=== PATIENT | female | born 1945 | race Caucasian/White ===

== ENCOUNTER → 2016-06-19 | Outpatient (CLI) | payer OTHER ==
[~2016-06-19] VITALS: Ht 160 cm; Wt 129.1 kg
[~2016-06-19] MED LIST: ALEVE220 MG PO; ASPIR 8181 MG PO; IRBESARTAN-HCT1 EAC1 PO; MYRBETRIQ50 MG PO; RESTASIS1 EACH OPHTHALMIC; STOOL SOFTENER100 MG PO; TYLENOL325 MG PO; VITAMIN D1000 UNI1 PO; ZOCOR 10 MG TAB10 MG PO
--- NOTE | ~2016-06-19 | HPC ---
[facility] [address] [place] [address] PAIN MANAGEMENT CONSULTATION Name: MYRNA MAXWELL Room #: REG CLAnne Ron#: [id number] Admission: 06/19/16 Attend Phys: Facundo Whiting MD Discharge: Date of : 47 Report #: [id number] THIS REPORT FOR: //name// CC: Lam Whiting DATE OF REGISTRATION: 06/19/2016. Followup visit for low back pain and radiculopathy. The patient returns to the pain clinic today for an epidural injection. Her last injection was about three and a half months ago. She continues to report excellent response to these injections that last about 3-4 months. She is not a surgical candidate. Pain again is reported to be in her back, it does radiate down into her legs a bit. She has a marked old degenerative disk at L2-L3 and we have been injecting her in that area. Pain is worse with walking, standing, getting up and down out of the bed. She reports that after her last injection, she had up to 80% pain relief for 1 month and then the pain gradually recurred over the next several months. She is here today hoping that she can have continued improvement and is much better than she was at the very beginning of therapy over a year ago. MEDICATIONS: Cyclosporine eye drops, naproxen on as needed basis, aspirin 81 mg daily, Tylenol taken as needed as well, simvastatin, Myrbetriq and irbesartan/hydrochlorothiazide. ALLERGIES: None. PHYSICAL EXAMINATION: She is 5 feet 3 inches, 284 pounds for a BMI of 50.4. Blood pressure is 134/69, heart rate is 82, respirations 16. She is able to move from sitting to standing position and ambulate without much of an antalgic gait. She does not use a walking device. She has limited range of motion across the lumbar spine and tenderness across the low back and positive straight leg raising. IMPRESSION: Chronic low back pain with radiculopathy. RECOMMENDATION: Repeat epidural injection L2-L3 under fluoroscopic guidance. PROCEDURE: She was taken to the fluoroscopic suite, placed prone, skin prepped with ChloraPrep, skin anesthetized over L2-L3 and a 20-gauge 6 inch Tuohy epidural needle was advanced in the epidural space with loss of resistance. No blood or CSF was aspirated, 1 mL of Omnipaque injected. Good spread of dye observed in the epidural space followed by 3 mL of 0.5% lidocaine mixed with 80 mg of triamcinolone. She tolerated the procedure well and was observed for 45 minutes and discharged. [address] [address] PAIN MANAGEMENT CONSULTATION Name: MYRNA MAXWELL Room #: REG TEOFILO Velasquez#: [id number] Admission: 06/19/16 Attend Phys: Facundo Whiting MD Discharge: Date of : 47 Report #: [id number] Follow up as needed. By: [id number] Facundo Whiting MD /kris
[2016-06-19 13:52] VITALS: BP 134/69
== END | disposition home or self-care (01) ==
LOC: PAIN 06:51
DX: M54.16 Radiculopathy, lumbar region (principal); M54.5 Low back pain; G89.29 Other chronic pain; Z87.891 Personal history of nicotine dependence

== ENCOUNTER → 2016-10-21 | Outpatient (CLI) | payer OTHER ==
[~2016-10-21] VITALS: Ht 157.5 cm; Wt 127.0 kg
[~2016-10-21] MED LIST changes: +CARTIA XT240 M1 PO; +ELIQUIS5 MG PO; +LASIX 40 MG TAB40 M2 PO; +LOPRESSOR50 PO; +METOPROLOL SUC100 MG PO; +POTASSIUM20 PO
--- NOTE | ~2016-10-21 | EKG ---
[address] [address] ELECTROCARDIOGRAM REPORT Name: MYRNA MAXWELL [id number] Admission: 10/21/16 Attend Phys: Davie Finn MD Discharge: Date of : 47 Report #: [id number] THIS REPORT FOR: //name// [facility] Test Date: 2016-10-21 Test Time: 09:28:33 Pat Name: MYRNA MAXWELL Department: Room: Gender: F [employer] Intelligence Technician: Charlie ANDREW : 1945 Requested By: Davie Finn Order Number: [id number] MD: Luis Garcia Measurements Intervals [place] Rate: 70 P: 24 TN: 192 QRS: 32 QRSD: 94 T: 38 QT: 400 QTc: 432 Interpretive Statements Sinus rhythm No significant abnormality No previous ECG available for comparison Electronically Signed On 10-22-2016 8:05:52 CDT by Luis Garcia [email or web address] <ELECTRONICALLY SIGNED> By: Luis Garcia MD, [facility] 10/22/16 0805 0928 0928 Luis Garcia MD, FACC /EPI
[2016-10-21 07:48] VITALS: BP 110/66
[2016-10-21 08:04] LABS: HEMATOCRIT 42.6 % (37.0-47.0); HEMOGLOBIN 14.1 gm/dL (12.0-15.0); MCH 31.2 pg (26.0-34.0); MCHC 33.1 g/dL (28.0-37.0); MCV 94.1 fL (80.0-100.0); RBC 4.53 mil/uL (4.20-5.00); RDW 13.6 % (10.5-14.5); WBC 5.6 thou/uL (4.0-11.0)
[2016-10-21 08:14] LABS: CALCIUM 8.7 mg/dL (8.5-10.1); CREATININE 0.7 mg/dL (0.6-1.0); POTASSIUM 3.6 mmol/L (3.5-5.1)
[2016-10-21 08:18] LABS: ALBUMIN 3.3 g/dL (3.4-5.0); INR 1.1; PROTIME 11.1 Seconds (9.3-11.4); TOTAL BILIRUBIN 0.7 mg/dL (<0.1-1.0); TOTAL PROTEIN 6.9 g/dL (6.4-8.2)
== END | disposition home or self-care (01) ==
LOC: CATH 07:13
PROVIDERS: Internal Medicine Cardiovascular Disease
DX: I48.91 Unspecified atrial fibrillation (principal); I10 Essential (primary) hypertension; E78.5 Hyperlipidemia, unspecified; E66.01 Morbid (severe) obesity due to excess calories; Z82.49 Family history of ischemic heart disease and other diseases of the circulatory system; Z98.890 Other specified postprocedural states; Z96.653 Presence of artificial knee joint, bilateral; Z79.01 Long term (current) use of anticoagulants; Z79.899 Other long term (current) drug therapy
CPT/HCPCS: 62110; 62900

== ENCOUNTER → 2016-11-20 | Outpatient (CLI) | payer OTHER ==
[~2016-11-20] VITALS: Ht 157.5 cm; Wt 127.0 kg
[~2016-11-20] MED LIST changes: +APAP650 PO
--- NOTE | ~2016-11-20 | HPC ---
[facility] [place] [address] PAIN MANAGEMENT CONSULTATION Name: MYRNA MAXWELL Room #: REG TEOFILO Ron#: [id number] Admission: 11/20/16 Attend Phys: Facundo Whiting MD Discharge: Date of : 47 Report #: [id number] THIS REPORT FOR: //name// CC: THOMAS Whiting DATE OF SERVICE: 11/20/2016 Followup visit for lumbar radiculopathy with weakness, bilateral lower extremities. The patient returns to pain clinic today for injections. She was last seen on 06/19/2016 when she received a lumbar epidural injection with good response. She has significant spurring noted at L2-L3 where we have been injecting her and she has had months of relief with injections allowing her to be more active and avoid the use of pain medication. In the last few months since I saw her, she has developed atrial fibrillation. She has had cardioversion now and in sinus rhythm, but remains on Eliquis. It was discontinued 72 hours and advanced at today's visit, so that she could have an epidural injection. Pain score today is 3-4, mostly in her low back, but she has weakness in her legs consistent with radiculopathy. She finds that after her injection not only is her back pain dramatically better, but she has better endurance, her legs feel stronger. MEDICATIONS: Reviewed and reconciled. For pain, she has been taking only Tylenol. ALLERGIES: NONE. PHYSICAL EXAMINATION: She is a mohamud 71-year-old. Blood pressure is 113/47, heart rate 88, respirations 16. BMI is 51.2. She is able to stand independently. She walks with antalgic features. Her gait is little bit unstable. Cardiac rhythm is regular today. IMPRESSION: 1. Low back pain with radiculopathy, manifested as weakness, bilateral lower extremities secondary to degenerative disk disease. She has responded beautifully to epidural injections. 2. Recent onset atrial fibrillation. 3. Morbid obesity. PROCEDURE: Epidural steroid injection under fluoroscopic guidance. [address] [address] PAIN MANAGEMENT CONSULTATION Name: HANSMYRNA A Room #: REG TEOFILO Velasquez#: [id number] Admission: 11/20/16 Attend Phys: Facundo Whiting MD Discharge: Date of : 47 Report #: [id number] PROCEDURE NOTE: She was taken to the fluoroscopic suite for treatment. She was placed prone, skin was prepped with ChloraPrep. Skin was anesthetized over L2-L3 and a 20-gauge Tuohy epidural needle advanced in the first attempt into the epidural space with loss of resistance. There was no blood or CSF aspirated. 1 mL of Omnipaque injected, was then followed by 3 mL of 0.5% lidocaine mixed with 80 mg of triamcinolone. She tolerated the procedure well and was observed for 45 minutes and discharged. Followup visit planned on an as needed basis. She was instructed to restart her Eliquis tonight. By: [id number] Facundo Whiting MD /nt
[2016-11-20 12:43] VITALS: BP 113/47
== END | disposition home or self-care (01) ==
LOC: PAIN 09-25 06:45
DX: M51.36 Other intervertebral disc degeneration, lumbar region (principal); M54.16 Radiculopathy, lumbar region; I48.91 Unspecified atrial fibrillation; E66.01 Morbid (severe) obesity due to excess calories; G89.29 Other chronic pain; Z68.43 Body mass index [BMI] 50.0-59.9, adult; Z79.899 Other long term (current) drug therapy; Z98.890 Other specified postprocedural states

== ENCOUNTER → 2017-01-27 | Outpatient (CLI) | payer OTHER ==
[~2017-01-27] VITALS: Ht 157.5 cm; Wt 128.4 kg
--- NOTE | ~2017-01-27 | HPC ---
[facility] [address] [place] [address] PAIN MANAGEMENT CONSULTATION Name: MYRNA MAXWELL Room #: REG CL Tien.#: [id number] Admission: 01/27/17 Attend Phys: Facundo Whiting MD Discharge: Date of : 47 Report #: [id number] THIS REPORT FOR: //name// CC: Obed Head MD [facility] Lam Whiting DATE OF SERVICE: 01/27/2017 DATE OF REGISTRATION: 01/27/2017 Followup visit for chronic lumbar radiculopathy. The patient has done really well in the past with epidural injections, but the one I gave her on 11/20/2016 was not as helpful. I reviewed her films from that injection. It appears that the medication was well within the epidural space and spreading posteriorly. I did, however injected 1 level higher than I had injected her previously. She has a markedly degenerative disk with spurring and endplate changes noted at L1-L2. I have previously been injecting her at L3-L4. At her last injection, I injected her at L1-L2 and the response was left favorable, so I have agreed to repeat the injection today lower by one level. Potential benefits and risks have been reviewed in the past and once again discussed before we proceeded. She is complaining her pain was 7 or 8 today. It is in her low back, radiates bilaterally into her hips and down below the knee. She has some instability and her balance is off from weakness in her legs. She has only been taking Extra Strength Tylenol because she does not want to take anything stronger. On physical exam, she has got blood pressure of 115/60, heart rate 87, respirations 20, BMI is 51.7. We have talked about her weight in the past and she understands that it contributes to her back issues. Cardiac rhythm is regular. Her gait is limited. IMPRESSION: Low back pain with radiculopathy. PLAN: Epidural steroid injection under fluoroscopic guidance. After informed consent, she was taken to the fluoroscopic suite, placed prone, skin prepped with ChloraPrep. Skin anesthetized the right of midline at L2-L3. A 20-gauge Tuohy epidural needle was advanced toward the epidural space. I removed the stylet believing that I was just outside the ligamentum flavum and it was apparent that I had advanced the needle into the intrathecal space. I was able to easily aspirate CSF. The needle was therefore withdrawn slightly. The needle was then readvanced slightly lower in the epidural space where I was [address] [address] PAIN MANAGEMENT CONSULTATION Name: MYRNA MAXWELL Room #: REG [facility].#: [id number] Admission: 01/27/17 Attend Phys: Facundo Whiting MD Discharge: Date of : 47 Report #: [id number] able to engage the epidural ligamentum flavum. I advanced the needle into the epidural space with loss of resistance. There was no CSF nor was her blood aspirated at this level. I injected radiographic dye. It spread nicely within the epidural space. Some of the dye may have spread a bit anterior. I injected 1-2 mL of 0.5% lidocaine plain. There was no noticeable weakness at that time. No numbness or tingling. I then injected 4 mL of 0.5% lidocaine mixed with 80 mg of triamcinolone. She tolerated the procedure well and was taken to recovery room where she was observed for roughly 2 hours. She did develop fairly significant heaviness in her legs. We discussed this as possible movement of some of the 1% lidocaine into the intrathecal space or it could have been from the initial loss of resistance. She was able to ambulate with a steady gait 2 hours following the injection. I discussed with her the dural puncture and the possibility of posterior puncture headache. With the 20-gauge needle with bevel, I turned properly, 71 years of age, likelihood of headache I told her was roughly 1 in 8 or so I would believe it is about 15%. A phone call was placed to the patient 24 hours later. She was still experiencing excellent relief of pain and there was only a mild discomfort, nothing serious in the way of headache. I will check with her again in 72 hours following the procedure and she understands that if she develops postural headache, she is to call my cell phone. By: [id number] Facundo Whiting MD /nt
[2017-01-27 09:44] VITALS: BP 115/60
== END | disposition home or self-care (01) ==
LOC: PAIN 06:53
DX: M54.16 Radiculopathy, lumbar region (principal); G89.29 Other chronic pain; Z79.899 Other long term (current) drug therapy

== ENCOUNTER → 2017-04-27 | Outpatient (CLI) | payer OTHER ==
[~2017-04-27] VITALS: Ht 157.5 cm; Wt 129.3 kg
[~2017-04-27] MED LIST changes: +IRBESARTAN300 MG PO; +OXYBUTYNIN 5 MG5 M2 PO; +PACERONE 200 M200 M1 PO; -VITAMIN D1000 UNI1 PO; +VITAMIN D3400 UNIT PO
--- NOTE | ~2017-04-27 | HPC ---
[facility] [place] [address] PAIN MANAGEMENT CONSULTATION Name: MYRNA MAXWELL Room #: REG TEOFILO Ron#: [id number] Admission: 04/27/17 Attend Phys: Facundo Whiting MD Discharge: Date of : 46 Report #: [id number] THIS REPORT FOR: //name// CC: Lam Whiting DATE OF SERVICE: 04/27/2017 Followup visit for lumbar radiculopathy. The patient returns to Pain Clinic today for an epidural injection. She is morbidly obese. She has pain in her back that radiates into both her legs. It is worse with standing and weightbearing. She has plans to go to [place], [place] and would like an injection before she leaves. She is hopeful she will spend more time walking and being active; however, her pain intensity now is such that it limits simple day-to-day activities including getting up and down for bed. MEDICATIONS: All medications were reviewed and reconciled. PQRS assessment reveals osteoarthritis involving both left and right lower extremity, hip and knees. She is morbidly obese with height of 5 feet 2 inches, weight 285 for a BMI of 52.1. Vital signs are blood pressure 100/59, heart rate 73, respirations 20, O2 sat 97. Her pain intensity is a 5-6/10 and she is not currently a fall risk from her back, but lightheaded and dizzy are may be a fall risk on the basis of that. She has been given recommendations regarding orthostatic changes. She is on the blood thinner Eliquis typically for the DVT, but it has been discontinued in anticipation of an injection today. She has been treated with antihypertensive medications and currently showing some signs of orthostatic hypotension. She should follow up with primary care. She is not on an opioid and therefore, has not signed an opioid agreement or completed a risk tool. She does not smoke, but does drink alcohol on a social basis. IMPRESSION: 1. Lumbar radiculopathy, chronic. 2. Obesity. 3. History of atrial fibrillation, on anticoagulation therapy, discontinued in anticipation of injection Eliquis for 3 days. 4. Osteoarthritis involving lower extremity, worse in the left ankle. PROCEDURE: Lumbar epidural injection. PROCEDURE: She is taken to fluoroscopic suite, placed prone, skin prepped with ChloraPrep. Skin anesthetized over the L3-L4 interspace. A 20-gauge Tuohy epidural needle advanced in the epidural [place] [address] PAIN MANAGEMENT CONSULTATION Name: MYRNA MAXWELL Room #: REG CLI Ron#: [id number] Admission: 04/27/17 Attend Phys: Facundo Whiting MD Discharge: Date of : 47 Report #: [id number] technique. No blood or CSF aspirated. 1 mL of Omnipaque injected. Good spread of dye observed in the epidural space followed by 3 mL of 0.5% lidocaine with 80 mg of triamcinolone. She tolerated the procedure well and was observed for 45 minutes and discharged. Follow up as needed. <ELECTRONICALLY SIGNED> By: Facundo Whiting MD 06/03/17 1640 1531 0036 Facundo Whiting MD /nt
[2017-04-27 13:17] VITALS: BP 100/59
== END | disposition home or self-care (01) ==
LOC: PAIN 07:10
DX: M54.16 Radiculopathy, lumbar region (principal); G89.29 Other chronic pain; I48.91 Unspecified atrial fibrillation; M19.90 Unspecified osteoarthritis, unspecified site; E66.01 Morbid (severe) obesity due to excess calories; Z68.43 Body mass index [BMI] 50.0-59.9, adult; Z79.01 Long term (current) use of anticoagulants; Z79.899 Other long term (current) drug therapy

== ENCOUNTER → 2017-10-01 | Outpatient (CLI) | payer OTHER ==
[~2017-10-01] VITALS: Ht 157.5 cm; Wt 125.0 kg
--- NOTE | ~2017-10-01 | HPC ---
[facility] [place] [address] [address] PAIN MANAGEMENT CONSULTATION Name: MYRNA MAXWELL Room #: REG [facility] Tien.#: [id number] Admission: 10/01/17 Attend Phys: Facundo Whiting MD Discharge: Date of : 47 Report #: [id number] THIS REPORT FOR: //name// CC: Vincent Velez [facility] Lam Whiting DATE OF SERVICE: 10/01/2017 The patient returns to the pain clinic today and is scheduled to have her left knee replaced by Dr. Velez in about 2-1/2 weeks. She is concerned about her ability to perform physical therapy given her ongoing radiculopathy. She stopped her Eliquis and is here today for an epidural injection. She reports her last injection performed in April provided substantial pain relief. She was able to move more effectively. She was very grateful for the relief it provided. She is hopeful that this injection timed at this time will allow for similar mobility as she works to strengthen her legs. Right now, the left leg is very weak and she has difficulty with prolonged standing or walking, going up and down steps. She is constantly fearful of falling. She is morbidly obese and that contributes to some of the risks and concerns. All medications were reviewed and reconciled. She is off her Eliquis as I mentioned for 5 days. PQRS review is completed. She is morbidly obese. She denies use of tobacco. She is not hypertensive, but does have issues with intermittent atrial fibrillation. She follows with the artificial limb fitter. She is a fall risk due to the weakness in her left leg. I do not provide opioids for her at this time. IMPRESSION: 1. Lumbar radiculopathy, chronic and recurrent. 2. Obesity. 3. Osteoarthritis, left knee. 4. History of atrial fibrillation, off Eliquis now for 5 days. PROCEDURE: Lumbar epidural steroid injection under fluoroscopic guidance. PROCEDURE: She was taken to the fluoroscopic suite, placed prone, prepped with ChloraPrep. Skin was anesthetized over L3-L4 to the right of midline. A 20-gauge Tuohy epidural needle advanced in the epidural space in the first attempt with loss of resistance technique. No blood or CSF was aspirated. 1 mL of Omnipaque injected. Good spread of dye observed in the epidural space followed by 3 mL of 0.5% lidocaine mixed with 80 mg of triamcinolone. She [address] [address] PAIN MANAGEMENT CONSULTATION Name: MYRNA MAXWELL Room #: [id number] Admission: 10/01/17 Attend Phys: Facundo Whiting MD Discharge: Date of : 47 Report #: [id number] tolerated the procedure well, was observed for 45 minutes and discharged. Follow up as needed. <ELECTRONICALLY SIGNED> By: Facundo Whiting MD 10/05/17 1230 1245 0139 MD juliano Childers
[2017-10-01 11:04] VITALS: BP 104/53
== END | disposition home or self-care (01) ==
LOC: PAIN 07:24
DX: M54.16 Radiculopathy, lumbar region (principal); E66.01 Morbid (severe) obesity due to excess calories; I48.91 Unspecified atrial fibrillation; Z79.899 Other long term (current) drug therapy; M17.12 Unilateral primary osteoarthritis, left knee

== ENCOUNTER → 2018-02-08 | Outpatient (CLI) | payer OTHER ==
[~2018-02-08] VITALS: Ht 160 cm; Wt 130.2 kg
--- NOTE | ~2018-02-08 | HPC ---
[facility] [address] [address] PAIN MANAGEMENT CONSULTATION Name: MYRNA MAXWELL Room #: REG TEOFILO [facility].#: [id number] Admission: 02/08/18 Attend Phys: Facundo Whiting MD Discharge: Date of : 47 Report #: [id number] THIS REPORT FOR: //name// CC: Vincent Head MD [facility] Lam Whiting DATE OF SERVICE: 02/08/2018 Followup visit for lumbar radiculopathy. The patient returns today for lumbar epidural steroid injection. She has responded favorably to midline epidural injections performed just below the level of a large spur that we identified on AP and lateral views. The spur is most prominent at L3-L4. We injected just below that interspace. She reports that after each epidural, she has substantial improvement measured in months. Less pain radiating into her legs, she is able to stand and walk with greater ease. She has recently undergone a revision of her left knee replacement. Dr. Vincent Velez did it at [facility] and she is very pleased with his work, his conscientious and also with his excellent recommendations regarding rehabilitation, which she felt was critical. She is on Eliquis for atrial fibrillation. Dr. Head provides medication for her and I spoke with him this morning agreeing that 3 days is enough to be off of her Eliquis safely for her heart and also by recommendation for a neuraxial epidural injection. PQRS: Review completed today demonstrates a history of osteoarthritis with bilateral knee replacements, morbid obesity 50.9 BMI. She has struggled mildly with weight and weight loss is a challenge. She is on hypertensive medications as noted. All medications were reviewed. She has a history of atrial fibrillation. All cardiac medications are overseen by Dr. Gomes and Dr. Head. She is on Eliquis, discontinuing roughly 4 days ago. She is not a fall risk at this time. She does not take opioid medications. She denies use of current tobacco and alcohol is consumed in a social setting. IMPRESSION: 1. Chronic low back pain with radiculopathy, bilateral. 2. Morbid obesity. 3. Osteoarthritis, status post bilateral knee replacements with revision of left knee replacement. [address] [address] PAIN MANAGEMENT CONSULTATION Name: MYRNA MAXWELL Room #: REG [facility].#: [id number] Admission: 02/08/18 Attend Phys: Facundo Whiting MD Discharge: Date of : 47 Report #: [id number] 4. History of atrial fibrillation. PROCEDURE: Lumbar epidural steroid injection L3-L4 under fluoroscopic guidance. PROCEDURE: She was taken to fluoroscopic suite, placed prone, skin prepped with ChloraPrep. Skin anesthetized over the L3-L4 interspace. A 20-gauge Tuohy epidural needle advanced into the epidural space just to the right of midline. No blood or CSF aspirated. 1 mL of Omnipaque was injected. Good spread of dye observed in the epidural space followed by 3 mL of 0.5% lidocaine with 80 mg of triamcinolone. She tolerated the procedure well and was observed for 45 minutes and discharged. Follow up as needed. By: [id number] Facundo Whiting MD /nt
[2018-02-08 09:12] VITALS: BP 104/49
== END | disposition home or self-care (01) ==
LOC: PAIN 06:53
DX: M54.16 Radiculopathy, lumbar region (principal); G89.29 Other chronic pain; M17.0 Bilateral primary osteoarthritis of knee; I48.91 Unspecified atrial fibrillation; E66.01 Morbid (severe) obesity due to excess calories; Z79.01 Long term (current) use of anticoagulants; Z68.43 Body mass index [BMI] 50.0-59.9, adult; Z96.653 Presence of artificial knee joint, bilateral; Z98.890 Other specified postprocedural states; Z79.899 Other long term (current) drug therapy

== ENCOUNTER → 2018-03-25 | Outpatient (CLI) | payer OTHER ==
[2018-03-18 09:06] VITALS: BP 110/60
[~2018-03-25] VITALS: Ht 160 cm; Wt 131.9 kg
--- NOTE | ~2018-03-25 | HPC ---
[facility] [address] [place] [address] PAIN MANAGEMENT CONSULTATION Name: MYRNA MAXWELL Room #: REG TEOFILO Ron#: [id number] Admission: 03/25/18 Attend Phys: Facundo Whiting MD Discharge: Date of : 47 Report #: [id number] THIS REPORT FOR: //name// CC: Lam Whiting DATE OF SERVICE: 03/25/2018 Followup visit for chronic low back pain with radiculopathy. The patient is here today for a second epidural injection in the last 3 months. In the past, she has received at times up to 6 months of pain relief following an epidural injection. Her last injection was not as helpful. We reviewed her injection site spot films and hope to repeat the longstanding relief she received in April. She describes her pain as mostly low back, weightbearing across the lumbosacral segment with some radiation and down the back of her legs. When she is sitting or lying, she is comfortable. We had an open and altagracia discussion today about her weight. She understands that it contributes greatly to her back pain and she has goals to lose weight in 2019. She has a number of strategies in mind. PQRS review reveals osteoarthritis of knees and spondylosis of the low back. BMI 51.5. She is on Eliquis, but discontinued it 4 days ago in anticipation of injection. Dr. Head provides medication for blood pressure. All medications were reviewed and reconciled noted on the electronic medical record. She is not currently on opioids. She has not fallen in the last 3 months and has not fallen over the course of the last year. She is cautious when going up and down steps due to her weight. IMPRESSION: 1. Chronic low back pain with radiculopathy, bilateral, multilevel. 2. Lumbar spondylosis. 3. Osteoarthritis, status post bilateral knee replacements. 4. Morbid obesity. 5. Hypertension. 6. History of atrial fibrillation. She is off her Eliquis for injection today. PROCEDURE: Lumbar epidural steroid injection, L3-L4. DESCRIPTION OF PROCEDURE: She was taken to fluoroscopic suite, placed prone, skin prepped with ChloraPrep. Skin anesthetized over the L3-L4 interspace and a 20-gauge Tuohy epidural needle advanced in the epidural space with loss of resistance. There was initially blood aspirated and the needle was [address] [address] PAIN MANAGEMENT CONSULTATION Name: HANSMYRNA A Room #: REG [facility].#: [id number] Admission: 03/25/18 Attend Phys: Facundo Whiting MD Discharge: Date of : 47 Report #: [id number] repositioned. A second positioning revealed no aspiration of blood, 1 mL of lidocaine injected with no untoward effects. This was then followed by 1 mL of Omnipaque and an excellent epidurogram was achieved. It was followed by 3 mL of 0.5% lidocaine mixed with 80 mg of triamcinolone. She tolerated the procedure well and observed for 45 minutes. Pain score reduced to 2/10. Followup visit scheduled on an as needed basis. No medications were ordered at this time. By: [id number] Facundo Whiting MD /nt
[2018-03-25 10:23] VITALS: BP 106/52
== END | disposition home or self-care (01) ==
LOC: PAIN 03-18 08:39
DX: M47.26 Other spondylosis with radiculopathy, lumbar region (principal); G89.29 Other chronic pain; M17.0 Bilateral primary osteoarthritis of knee; I10 Essential (primary) hypertension; E66.01 Morbid (severe) obesity due to excess calories; I48.91 Unspecified atrial fibrillation; Z79.01 Long term (current) use of anticoagulants; Z79.899 Other long term (current) drug therapy; Z96.653 Presence of artificial knee joint, bilateral; Z98.890 Other specified postprocedural states; Z68.43 Body mass index [BMI] 50.0-59.9, adult

== ENCOUNTER → 2018-06-30 | Outpatient (CLI) | payer OTHER ==
[2018-06-30 14:23] LABS: ALBUMIN 3.6 g/dL (3.4-5.0); CREATININE 0.8 mg/dL (0.6-1.0); POTASSIUM 3.6 mmol/L (3.5-5.1); TOTAL BILIRUBIN 0.5 mg/dL (<0.1-1.0); TOTAL PROTEIN 6.7 g/dL (6.4-8.2)
== END ==
LOC: MRI 13:31
PROVIDERS: Family Medicine
DX: H53.2 Diplopia (principal); H49.10 Fourth [trochlear] nerve palsy, unspecified eye; R90.82 White matter disease, unspecified

== ENCOUNTER → 2018-07-14 | Outpatient (CLI) | payer OTHER ==
[~2018-07-14] MED LIST changes: +DEMADEX20 MG PO; +DOXYCYCLINE HY100 M3 PO
== END ==
LOC: HYPER 07-12 15:22
DX: I87.303 Chronic venous hypertension (idiopathic) without complications of bilateral lower extremity (principal); L97.821 Non-pressure chronic ulcer of other part of left lower leg limited to breakdown of skin; L97.811 Non-pressure chronic ulcer of other part of right lower leg limited to breakdown of skin; I48.0 Paroxysmal atrial fibrillation; E66.9 Obesity, unspecified; E78.5 Hyperlipidemia, unspecified; M19.90 Unspecified osteoarthritis, unspecified site; G47.33 Obstructive sleep apnea (adult) (pediatric); J45.909 Unspecified asthma, uncomplicated; Z87.891 Personal history of nicotine dependence; Z79.01 Long term (current) use of anticoagulants; Z68.42 Body mass index [BMI] 45.0-49.9, adult

== ENCOUNTER → 2018-07-19 | Outpatient (CLI) | payer OTHER ==
[~2018-07-19] VITALS: Ht 160 cm; Wt 120.9 kg
--- NOTE | ~2018-07-19 | HPC ---
[facility] [place] [address] PAIN MANAGEMENT CONSULTATION Name: MYRNA MAXWELL Room #: REG TEOFILO Ron#: [id number] Admission: 07/19/18 ������������������ Attend Phys: Facundo Whiting MD Discharge: ������������������ Date of : 47 Report #: [id number] THIS REPORT FOR: //name// CC: THOMAS Whiting DATE OF SERVICE: 07/19/2018 REASON FOR VISIT: Followup visit for chronic low back pain with radiculopathy, left lower extremity. HISTORY OF PRESENT ILLNESS: The patient returns to pain clinic today for repeat epidural injection. Her pain score has been as high as a 3-5/10. She is fairly stoic and her numbers do not reflect the pain that she has been having with both standing and walking. She has been doing much better over the course of the last 6 months following her knee replacements. She then backed off a little bit on her physical therapy and I think that makes a difference for her. The pain is fairly severe and limiting her day-to-day activities. She has responded nicely to epidural injections at L3-L4 which we will repeat today under fluoroscopic guidance. PQRS shows that she does have bilateral osteoarthritis. She has had knee replacements. She is on Eliquis, discontinuing it last in anticipation of her injection. She takes amiodarone, torsemide, metoprolol, also for her heart and hypertension provided by Dr. Head. She has not fallen in the last 3 months and would not be considered currently a fall risk. SOCIAL HISTORY: She denies use of tobacco. She drinks alcohol in social setting. PHYSICAL EXAMINATION: GENERAL: She is a pleasant female, always thoughtful, kind to the clinic and nurses. VITAL SIGNS: Her blood pressure is 116/41, heart rate 73, respirations 16. She is 5 feet 3, 266 pounds, which calculates to a BMI of 47.2. She can move independently from a sitting to standing position. She walks with a bit of an unstable antalgic gait. She has limited range of motion of the lumbar spine. She has tenderness across the lumbosacral segment. Straight leg raising is positive on the left, reproducing some pain that follows all the way down into the calf considered radiculopathy not arthropathy. Sensation is intact. There is generalized weakness of lower extremities, but no focal weakness. IMPRESSION: Chronic low back pain with radiculopathy. She has some significant degenerative disk disease, mostly at higher levels, particularly L3-L4. There is also some bilateral neural foraminal narrowing at other levels throughout the [address] [address] PAIN MANAGEMENT CONSULTATION Name: MYRNA MAXWELL Michael Room #: REG TEOFILO Chauhan.#: [id number] Admission: 07/19/18 ������������������ Attend Phys: Facundo Whiting MD Discharge: ������������������ Date of : 47 Report #: [id number] lumbar spine. Low back pain with radiculopathy. RECOMMENDATIONS: Repeat epidural injection under fluoroscopic guidance. We will continue at L3-L4. She was taken to fluoroscopic suite, placed prone, skin prepped with ChloraPrep. Skin anesthetized over the L3-L4 interspace. A 20-gauge Tuohy was epidural needle was advanced in the epidural space with loss of resistance technique. I was able to aspirate blood and suggesting an epidural vein. With her obesity and in the prone position, I think were increasing pressure within the epidural space and encouraging the venous plexus. The needle was removed and repositioned on 3 occasions until I was able to advance the needle to the left side of the epidural space without any blood aspirated. A mL of Omnipaque was injected at that level demonstrating an excellent epidurogram followed by 3 mL of 0.5% lidocaine mixed with 80 mg triamcinolone. She tolerated the procedure well. Pain was reduced to recovery room to 0. There were no complications. Followup visit planned in the pain clinic on an as needed basis for additional injections. No medications were ordered today for the patient. ��������������������������������������������� ���������������������������������������� By: ��������������������������������������������� [id number] Facundo Whiting MD /nt
[2018-07-19 13:38] VITALS: BP 116/41
--- NOTE | 2018-07-19 13:43 | NUR ---
Pain Clinic Assessment: 1. History of Osteoarthritis: Left Lower Extremity Right Lower Extremity History of Rheumatoid Arthritis: Not Applicable 2. Height: 5 ft. 3 in. 160.0 cm. Weight: 266.6 lb. oz. 120.929 kg. Patient's BMI: 47.2 3. Vital Signs: BP: 116/41 Pulse: 73 Resp: 16 Temp: 02 Sat: 95 ECG Mon: 4. Pain Intensity: 2-3 5. Fall Risk: Dizziness: N Needs help standing or walking: N Fallen in the last 3 months: N Fall risk comments: 6. Patient on Blood Thinner: NEHAIS 7. History of Hypertension: Y 8. Opioid Therapy greater than 6 weeks: N Opiate Contract Signed: 9. Risk Assessment Tool Provided: low risk 10. Functional Assessment Tool: 11. Recreational Drug Use: Never Drug Type: Tobacco Use: Never Smoker Tobacco Type: Amount or Packs/day: How Many Years: Alcohol Use: Yes Frequency: Quant:
== END | disposition home or self-care (01) ==
LOC: PAIN 07:07
DX: M51.16 Intervertebral disc disorders with radiculopathy, lumbar region (principal); M48.061 Spinal stenosis, lumbar region without neurogenic claudication; G89.29 Other chronic pain; I10 Essential (primary) hypertension; M17.0 Bilateral primary osteoarthritis of knee; Z79.01 Long term (current) use of anticoagulants; Z79.899 Other long term (current) drug therapy; Z96.653 Presence of artificial knee joint, bilateral; Z98.890 Other specified postprocedural states

== ENCOUNTER → 2018-07-22 | Outpatient (CLI) | payer OTHER | LOC: HYPER 06:52 | DX: I87.313 Chronic venous hypertension (idiopathic) with ulcer of bilateral lower extremity (principal); L97.811 Non-pressure chronic ulcer of other part of right lower leg limited to breakdown of skin; L97.821 Non-pressure chronic ulcer of other part of left lower leg limited to breakdown of skin; R60.0 Localized edema; E66.9 Obesity, unspecified; E78.5 Hyperlipidemia, unspecified; G47.33 Obstructive sleep apnea (adult) (pediatric); I48.0 Paroxysmal atrial fibrillation; J45.909 Unspecified asthma, uncomplicated; M19.90 Unspecified osteoarthritis, unspecified site; Z79.01 Long term (current) use of anticoagulants; Z87.891 Personal history of nicotine dependence; Z96.653 Presence of artificial knee joint, bilateral; Z68.42 Body mass index [BMI] 45.0-49.9, adult ==

== ENCOUNTER → 2018-10-25 | Outpatient (CLI) | payer OTHER ==
[~2018-10-25] VITALS: Ht 160 cm; Wt 129.3 kg
--- NOTE | ~2018-10-25 | HPC ---
[facility] [place] [address] PAIN MANAGEMENT CONSULTATION Name: MYRNA MAXWELL Room #: REG TEOFILO NelyZaJg#: [id number] Admission: 10/25/18 ������������������ Attend Phys: Facundo Whiting MD Discharge: ������������������ Date of : 47 Report #: [id number] THIS REPORT FOR: //name// CC: THOMAS Whiting DATE OF SERVICE: 10/25/2018 Followup visit for chronic low back pain with radiculopathy. The patient returns to the pain clinic for an epidural injection. She was last injected on 07/19/2018. She is off her blood thinning medication. She has generally responded very well to epidural injections. She is not a good surgical candidate due to her size and body habitus. She is doing well with her knees. She had a revision of her left knee performed by Dr. Bhakta at [facility] and is pleased with results. PQRS: 1. Positive for bilateral osteoarthritis. 2. She is 5 feet 3 inches with a BMI of 50.5. 3. Blood pressure 124/54, heart rate 60, respirations 16. 4. Pain intensity 2-3/10. 5. She has some dizziness, but no falls recently. She does not appear to be a fall risk. 6. She is on Eliquis, but discontinued it for 72 hours in anticipation of injection. 7. She is also treated for hypertension. Medications reviewed and reconciled from the electronic medical record. Dr. Gomes provides all her antihypertensives. 8. She is not on an opioid agreement. 9. She has completed an opioid risk tool and completed at low risk. 10. She denies use of tobacco, drinks alcohol in social setting. PHYSICAL EXAMINATION: VITAL SIGNS: As noted above. GENERAL: Pleasant female. MUSCULOSKELETAL: Moves from a sitting to standing position, walks with a stable gait. She has tenderness across her low back, pain with forward flexion and extension. Pain radiates from her low back into the hips. IMPRESSION: Chronic low back pain with radiculopathy secondary to degenerative disk disease. She has responded well to epidural injections at L3-L4. PLAN: Epidural injection today under fluoroscopic guidance. [facility] [address] [place] [address] PAIN MANAGEMENT CONSULTATION Name: HANSMYRNA Michael Room #: REG [facility].#: [id number] Admission: 10/25/18 ������������������ Attend Phys: Facundo Whiting MD Discharge: ������������������ Date of : 47 Report #: [id number] Her BMI is 51. DESCRIPTION OF PROCEDURE: She was carefully positioned on the table with pressure points padded. Skin was prepped with ChloraPrep and the skin was anesthetized overlying the L3-L4 interspace. A 20-gauge Tuohy epidural needle was placed in the subcutaneous tissue in advance. I felt that it was well outside of the spinal canal, but when I removed the stylet, I immediately obtained CSF. The needle was withdrawn. The patient was informed of our dural puncture. I then prepped the skin to the right of midline and advanced needle into the epidural space at the same level. There was no blood nor CSF aspirated at that level. I then injected a total of 3 mL of normal saline mixed with 80 mg triamcinolone. She tolerated the procedure well and got a good response with reduction in pain in recovery room. Followup visit planned by phone in 1 month. ��������������������������������������������� ���������������������������������������� By: ��������������������������������������������� [id number] Facundo Whiting MD /nt
[2018-10-25 13:01] VITALS: BP 123/54
--- NOTE | 2018-10-25 13:08 | NUR ---
Pain Clinic Assessment: 1. History of Osteoarthritis: Left Lower Extremity Right Lower Extremity History of Rheumatoid Arthritis: Not Applicable 2. Height: 5 ft. 3 in. 160.0 cm. Weight: 285.0 lb. oz. 129.276 kg. Patient's BMI: 50.5 3. Vital Signs: BP: 123/54 Pulse: 60 Resp: 16 Temp: 02 Sat: 98 ECG Mon: 4. Pain Intensity: 2-3 5. Fall Risk: Dizziness: Y Needs help standing or walking: N Fallen in the last 3 months: N Fall risk comments: 6. Patient on Blood Thinner: MUNIRQUIS 7. History of Hypertension: Y 8. Opioid Therapy greater than 6 weeks: N Opiate Contract Signed: 9. Risk Assessment Tool Provided: low risk 10. Functional Assessment Tool: 35 11. Recreational Drug Use: Never Drug Type: Tobacco Use: Never Smoker Tobacco Type: Amount or Packs/day: How Many Years: Alcohol Use: Yes Frequency: Quant:
== END | disposition home or self-care (01) ==
LOC: PAIN 06:59
DX: M51.16 Intervertebral disc disorders with radiculopathy, lumbar region (principal); G89.29 Other chronic pain; M19.90 Unspecified osteoarthritis, unspecified site; I10 Essential (primary) hypertension; G47.30 Sleep apnea, unspecified; Z79.899 Other long term (current) drug therapy

== ENCOUNTER → 2019-05-02 | Outpatient (CLI) | payer OTHER | LOC: SJCVC 14:38 | DX: R94.31 Abnormal electrocardiogram [ECG] [EKG] (principal); I48.0 Paroxysmal atrial fibrillation; R06.02 Shortness of breath; I11.0 Hypertensive heart disease with heart failure; I50.43 Acute on chronic combined systolic (congestive) and diastolic (congestive) heart failure; E78.5 Hyperlipidemia, unspecified; D68.59 Other primary thrombophilia; G47.33 Obstructive sleep apnea (adult) (pediatric); Z86.79 Personal history of other diseases of the circulatory system; Z87.891 Personal history of nicotine dependence; Z72.89 Other problems related to lifestyle ==

== ENCOUNTER → 2019-12-21 | Outpatient (CLI) | payer OTHER | LOC: SJCVCIMAG 12:51 | PROVIDERS: ATTEND Internal Medicine Cardiovascular Disease | DX: R94.31 Abnormal electrocardiogram [ECG] [EKG] (principal); I35.8 Other nonrheumatic aortic valve disorders; I35.0 Nonrheumatic aortic (valve) stenosis; I48.0 Paroxysmal atrial fibrillation; E78.5 Hyperlipidemia, unspecified; E78.00 Pure hypercholesterolemia, unspecified; R06.02 Shortness of breath; D68.59 Other primary thrombophilia; I11.0 Hypertensive heart disease with heart failure; I50.32 Chronic diastolic (congestive) heart failure; E66.01 Morbid (severe) obesity due to excess calories; Z86.79 Personal history of other diseases of the circulatory system; Z68.42 Body mass index [BMI] 45.0-49.9, adult ==

== ENCOUNTER → 2020-02-23 | Outpatient (CLI) | payer OTHER | LOC: HYPER 11:02 | PROVIDERS: ATTEND Emergency Medicine | DX: I89.0 Lymphedema, not elsewhere classified (principal); I87.303 Chronic venous hypertension (idiopathic) without complications of bilateral lower extremity; R60.0 Localized edema; G47.33 Obstructive sleep apnea (adult) (pediatric); E66.9 Obesity, unspecified; E78.5 Hyperlipidemia, unspecified; I48.0 Paroxysmal atrial fibrillation; J45.909 Unspecified asthma, uncomplicated; J84.9 Interstitial pulmonary disease, unspecified; M19.90 Unspecified osteoarthritis, unspecified site; Z68.42 Body mass index [BMI] 45.0-49.9, adult; Z98.49 Cataract extraction status, unspecified eye; Z79.01 Long term (current) use of anticoagulants; Z87.891 Personal history of nicotine dependence; Z96.653 Presence of artificial knee joint, bilateral; Z90.710 Acquired absence of both cervix and uterus ==

== ENCOUNTER → 2020-03-15 | Outpatient (CLI) | payer OTHER | LOC: HYPER 12:57 | PROVIDERS: ATTEND Emergency Medicine | DX: I89.0 Lymphedema, not elsewhere classified (principal); I87.303 Chronic venous hypertension (idiopathic) without complications of bilateral lower extremity; R60.0 Localized edema; G47.33 Obstructive sleep apnea (adult) (pediatric); E66.9 Obesity, unspecified; E78.5 Hyperlipidemia, unspecified; I48.0 Paroxysmal atrial fibrillation; J45.909 Unspecified asthma, uncomplicated; J84.9 Interstitial pulmonary disease, unspecified; M19.90 Unspecified osteoarthritis, unspecified site; Z68.42 Body mass index [BMI] 45.0-49.9, adult; Z98.49 Cataract extraction status, unspecified eye; Z79.01 Long term (current) use of anticoagulants; Z87.891 Personal history of nicotine dependence; Z96.653 Presence of artificial knee joint, bilateral; Z90.710 Acquired absence of both cervix and uterus; M48.061 Spinal stenosis, lumbar region without neurogenic claudication ==

== ENCOUNTER → 2020-03-16 | Outpatient (CLI) | payer OTHER | LOC: SJCVCIMAG 10:07 | PROVIDERS: ATTEND Nuclear Medicine Nuclear Cardiology | DX: I82.813 Embolism and thrombosis of superficial veins of lower extremities, bilateral (principal); I83.92 Asymptomatic varicose veins of left lower extremity ==

== ENCOUNTER → 2020-03-20 | Outpatient (CLI) | payer OTHER | LOC: SJCVC 14:57 | PROVIDERS: ATTEND Nuclear Medicine Nuclear Cardiology | DX: I87.2 Venous insufficiency (chronic) (peripheral) (principal); I10 Essential (primary) hypertension; E78.00 Pure hypercholesterolemia, unspecified; I89.0 Lymphedema, not elsewhere classified; M79.89 Other specified soft tissue disorders; I48.19 Other persistent atrial fibrillation; E66.9 Obesity, unspecified; G89.29 Other chronic pain; Z79.899 Other long term (current) drug therapy; Z87.891 Personal history of nicotine dependence ==

== ENCOUNTER → 2020-04-04 | Outpatient (CLI) | payer OTHER | LOC: HYPER 11:31 | PROVIDERS: ATTEND Emergency Medicine | DX: I89.0 Lymphedema, not elsewhere classified (principal); I87.303 Chronic venous hypertension (idiopathic) without complications of bilateral lower extremity; I48.0 Paroxysmal atrial fibrillation; J45.909 Unspecified asthma, uncomplicated; E78.5 Hyperlipidemia, unspecified; M48.061 Spinal stenosis, lumbar region without neurogenic claudication; M19.90 Unspecified osteoarthritis, unspecified site; G47.33 Obstructive sleep apnea (adult) (pediatric); E66.9 Obesity, unspecified; Z68.42 Body mass index [BMI] 45.0-49.9, adult; Z96.653 Presence of artificial knee joint, bilateral; Z87.891 Personal history of nicotine dependence; Z79.01 Long term (current) use of anticoagulants ==

== ENCOUNTER → 2020-05-28 | Outpatient (CLI) | payer OTHER | LOC: HYPER 14:36 | PROVIDERS: ATTEND Emergency Medicine | DX: I89.0 Lymphedema, not elsewhere classified (principal); I87.303 Chronic venous hypertension (idiopathic) without complications of bilateral lower extremity; I48.0 Paroxysmal atrial fibrillation; J45.909 Unspecified asthma, uncomplicated; E78.5 Hyperlipidemia, unspecified; M48.061 Spinal stenosis, lumbar region without neurogenic claudication; M19.90 Unspecified osteoarthritis, unspecified site; G47.33 Obstructive sleep apnea (adult) (pediatric); E66.9 Obesity, unspecified; Z68.42 Body mass index [BMI] 45.0-49.9, adult; Z96.653 Presence of artificial knee joint, bilateral; Z87.891 Personal history of nicotine dependence; Z79.01 Long term (current) use of anticoagulants ==

== ENCOUNTER → 2020-09-26 | Outpatient (CLI) | payer OTHER | LOC: SJCVC 16:52 | PROVIDERS: ATTEND Internal Medicine Cardiovascular Disease | DX: R94.31 Abnormal electrocardiogram [ECG] [EKG] (principal); I48.0 Paroxysmal atrial fibrillation; I87.303 Chronic venous hypertension (idiopathic) without complications of bilateral lower extremity; E78.00 Pure hypercholesterolemia, unspecified; I38 Endocarditis, valve unspecified; I11.0 Hypertensive heart disease with heart failure; I50.32 Chronic diastolic (congestive) heart failure; D68.59 Other primary thrombophilia; I89.0 Lymphedema, not elsewhere classified; R60.0 Localized edema; I35.0 Nonrheumatic aortic (valve) stenosis; J45.909 Unspecified asthma, uncomplicated; E78.5 Hyperlipidemia, unspecified; G47.33 Obstructive sleep apnea (adult) (pediatric); Z90.710 Acquired absence of both cervix and uterus; Z79.899 Other long term (current) drug therapy; Z87.891 Personal history of nicotine dependence; Z82.49 Family history of ischemic heart disease and other diseases of the circulatory system ==

== ENCOUNTER → 2021-02-26 | Outpatient (CLI) | payer OTHER | LOC: SJCVC 10:06 | PROVIDERS: ATTEND Internal Medicine Cardiovascular Disease | DX: R19.5 Other fecal abnormalities (principal); I48.91 Unspecified atrial fibrillation; E78.00 Pure hypercholesterolemia, unspecified; G47.33 Obstructive sleep apnea (adult) (pediatric); Z79.01 Long term (current) use of anticoagulants; Z82.49 Family history of ischemic heart disease and other diseases of the circulatory system; F17.210 Nicotine dependence, cigarettes, uncomplicated; Z72.89 Other problems related to lifestyle ==

== ENCOUNTER → 2021-03-11 | Outpatient (CLI) | payer OTHER ==
[~2021-03-11] MED LIST changes: +AVAPRO 150 MG150 M1 PO; +MELATONIN10 M3 PO; +METOPROLOL SUCC50 MG PO; +POTASSIUM CHLO10 ME1 PO; +PROTONIX40 M2 PO; +TOPROL XL100 MG PO; +TOPROL XL50 MG PO; +VITAMIN B-121000 MC2 PO; +VITAMIN D350 MCG PO
== END ==
LOC: SJCVC 13:06
PROVIDERS: ATTEND Internal Medicine Cardiovascular Disease
DX: R94.31 Abnormal electrocardiogram [ECG] [EKG] (principal); I48.0 Paroxysmal atrial fibrillation; E78.00 Pure hypercholesterolemia, unspecified; I87.303 Chronic venous hypertension (idiopathic) without complications of bilateral lower extremity; I38 Endocarditis, valve unspecified; I11.0 Hypertensive heart disease with heart failure; I50.32 Chronic diastolic (congestive) heart failure; D68.59 Other primary thrombophilia; I89.0 Lymphedema, not elsewhere classified; R60.0 Localized edema; I35.0 Nonrheumatic aortic (valve) stenosis; E78.5 Hyperlipidemia, unspecified; G47.33 Obstructive sleep apnea (adult) (pediatric); J45.909 Unspecified asthma, uncomplicated; M48.061 Spinal stenosis, lumbar region without neurogenic claudication; E66.9 Obesity, unspecified; Z78.0 Asymptomatic menopausal state; Z87.891 Personal history of nicotine dependence; Z72.89 Other problems related to lifestyle; Z79.899 Other long term (current) drug therapy; Z91.040 Latex allergy status; Z82.49 Family history of ischemic heart disease and other diseases of the circulatory system

== ENCOUNTER → 2021-03-13 | Outpatient (CLI) | payer OTHER ==
[~2021-03-13] VITALS: Ht 160 cm; Wt 127.9 kg
[2021-03-13 09:30] LABS: HEMATOCRIT 22.5 % (37.0-47.0); HEMOGLOBIN 7.2 gm/dL (12.0-15.0); MCH 31.7 pg (26.0-34.0); RBC 2.27 mil/uL (4.20-5.00); RDW 13.6 % (10.5-14.5); WBC 4.9 thou/uL (4.0-11.0)
--- NOTE | 2021-03-13 11:44 | NUR ---
1045-PT RECOVERED FROM EGD. CONSENT FOR VIDEO CAPSULE ENDOSCOPY SIGNED PRIOR TO EGD. VIDEO RECORDER AND BELT PLACED ON PT AND PILLCAM SYNCED. DEVICE SWALLOWED. INSTRUCTED NPO X 2 HRS, THEN CL LIQ X 2 HRS, THEN MAY EAT LIGHT MEAL AND RESUME MEDS. INSTRUCTED TO VIEW BLINKING LIGHT ON RECORDER EVERRY 30 MINUTES AND WHEN STOPS AT END OF DAY TO BRING RECORDER AND BELT BACK TO PRODUCTION LINE IN THE ED. VOICES UNDERSTANDING OF ABOVE. PILLCAM RECORDING AT TIME OF DISCHARGE.
--- NOTE | 2021-03-20 08:13 | P ---
[facility] [place] [address] PROCEDURE REPORT Name: MYRNA MAXWELL Room #: REG LAMINAnne Velasquez#: [id number] Admission: 03/13/21 Attend Phys: Marco A Ramesh Discharge: Date of : 47 Report #: [id number] THIS REPORT FOR: cc: Lam Gomes MD, Rene P. MD McElhinney, Christian C. MD ~ cc: Lam Gomes MD, Obed Head MD DATE OF SERVICE: 03/13/2021 PROCEDURE PERFORMED: Upper endoscopy. HISTORY OF PRESENT ILLNESS: The patient is a 75-year-old female, began noticing dark stools within the last week. Hemoglobin recently was in the 10 range. She had a repeat hemoglobin on Thursday that was 7.7, a repeat today was 7.2. She had been on Eliquis. She has been holding this for several days. She was started on Protonix recently as well. Previously no history of gastroesophageal reflux disease or peptic ulcer disease. She had a colonoscopy by myself on 01/24/2019 in which several polyps were removed and multiple diverticula were noted in the sigmoid colon. Plan is for upper endoscopy. DESCRIPTION OF PROCEDURE: The risks and benefits of the procedure were explained to the patient, those risks including but not limited to bleeding, perforation and the risk of sedation. She understood these risks and gave informed consent. Sedation was given using propofol per anesthesia. Next, using a standard Olympus upper endoscope, the scope was placed in the patient's mouth and advanced under direct vision through the esophagus, stomach and into the third portion of the duodenum. The larynx was normal in appearance. The esophagus was normal throughout. The GE junction was normal. Upon entering the stomach, a small hiatal hernia was noted. A single small 4 mm gastric erosion was noted in the upper body. No evidence of bleeding. Otherwise, the gastric mucosa was normal. No evidence of ulcerations or blood were noted throughout the exam today. The pylorus was normal and patent. The duodenal bulb and first portion were normal. In the second portion of the duodenum, a large duodenal diverticulum was noted. No evidence of bleeding or ulceration. The third portion of the duodenum was normal. No obvious AVMs, or blood was noted throughout the duodenum. The scope was then withdrawn and the procedure terminated. The patient tolerated the procedure well. IMPRESSION: 1. Small hiatal hernia. 2. Small gastric erosion. 3. Large duodenal diverticulum. 4. Otherwise, normal upper endoscopy. RECOMMENDATIONS: No evidence of bleeding was noted on exam today. [address] [address] PROCEDURE REPORT Name: MYRNA MAXWELL Room #: REG TEOFILO Velasquez#: [id number] Admission: 03/13/21 Attend Phys: Marco A Ramesh Discharge: Date of : 47 Report #: [id number] erosion was small. Although this could have been an ulcer recently in the process of healing on PPI therapy. I would recommend proceeding with a M2 capsule endoscopy for further evaluation at this point. I would repeat hemoglobin in the next few days. Thank you for allowing me to participate in her care. <ELECTRONICALLY SIGNED> By: Marco A Valadez MD 03/20/21 0813 [id number] [id number] Marco A Valadez MD /nt
== END | disposition home or self-care (01) ==
LOC: GI 07:57
PROVIDERS: ATTEND Specialist
DX: K92.1 Melena (principal); K25.9 Gastric ulcer, unspecified as acute or chronic, without hemorrhage or perforation; K44.9 Diaphragmatic hernia without obstruction or gangrene; K57.10 Diverticulosis of small intestine without perforation or abscess without bleeding; I10 Essential (primary) hypertension; E78.00 Pure hypercholesterolemia, unspecified; I48.91 Unspecified atrial fibrillation; G47.30 Sleep apnea, unspecified; Z98.890 Other specified postprocedural states; Z79.899 Other long term (current) drug therapy; Z87.891 Personal history of nicotine dependence; Z96.653 Presence of artificial knee joint, bilateral; Z90.710 Acquired absence of both cervix and uterus; Z20.822 Contact with and (suspected) exposure to COVID-19
CPT/HCPCS: 62110; 62900

== ENCOUNTER → 2021-04-16 | Outpatient (CLI) | payer OTHER | LOC: SJCVCIMAG 12:49 | PROVIDERS: ATTEND Internal Medicine Cardiovascular Disease | DX: I08.3 Combined rheumatic disorders of mitral, aortic and tricuspid valves (principal); I48.0 Paroxysmal atrial fibrillation; I11.0 Hypertensive heart disease with heart failure; I50.32 Chronic diastolic (congestive) heart failure; E78.00 Pure hypercholesterolemia, unspecified; D50.9 Iron deficiency anemia, unspecified; I87.2 Venous insufficiency (chronic) (peripheral); J45.909 Unspecified asthma, uncomplicated; H53.2 Diplopia; E78.5 Hyperlipidemia, unspecified; M54.16 Radiculopathy, lumbar region; J84.9 Interstitial pulmonary disease, unspecified; M48.061 Spinal stenosis, lumbar region without neurogenic claudication; E66.9 Obesity, unspecified; G47.33 Obstructive sleep apnea (adult) (pediatric); Z86.79 Personal history of other diseases of the circulatory system; Z87.891 Personal history of nicotine dependence; Z72.89 Other problems related to lifestyle; Z79.899 Other long term (current) drug therapy; Z88.8 Allergy status to other drugs, medicaments and biological substances ==